=== PATIENT | female | born 1995 | race Caucasian/White ===

== ENCOUNTER 2025-08-01 09:48 | Outpatient (REF) | payer OTHER, SELFPAY ==
--- OUTSIDE RECORDS SUMMARY | 2025-08-01 09:00 | XMS_ITS | Encounter Summary ---
Author Organization [employer] Address [address] [place] [address] [address] [place] [address] Care Team Providers Care Auto Parker Name Role Phone Bren Nazario NP Primary Care Provider [phone] Reason for Referral * Consultation (Routine) - Pending Review Specialty Diagnoses / Procedures Referred By Contac t Referred To Contact Physiatry Diagnoses Chronic low back pain with left-sided sciatica, unspecified back pain laterality Bren Nazario NP [address] [place] [address] Phone: tel: fax: Referral ID Status Reason Start Date Expiration Date Visits Requested Visits Authorized [id number] Pending Review Specialty Services Required 5 08/01/2026 1 1 * Consultation (Routine) - Pending Review Specialty Diagnoses / Procedures Referred By Contac t Referred To Contact Physical Therapy Diagnoses Chronic low back pain with left-sided sciatica, unspecified back pain laterality Bren Nazario NP [address] [place] [address] Phone: tel: fax: Referral ID Status Reason Start Date Expiration Date Visits Requested Visits Authorized [id number] Pending Review Specialty Services Required 08/01/2026 1 1 Reason for Visit * Reason Comments New pt Encounter Details Date Type Department Care Team (Late st Contact Info) Description 08/01/2025 9:00 AM EST Office Visit [facility] [address] [place] [address] Bren Nazario, YEE [address] [place] [address] Chronic low back pain with left-sided sciatica, unspecified back pain laterality (Primary Dx); Healthcare maintenance; Seborrheic dermatitis Social History Tobacco Use Types Packs/Day Years Used Date Smoking Tobacco: Never Assessed Depression Answer Date Recorded Patient Health Questionnaire-9 Score 1 08/01/2025 Patient Health Questionnaire-9 Score 1 08/01/2025 Last PHQ-9: Questionnaire Data Not on file 1 10/01/2024 Housing Stability Answer Date Recorded What is your housing situation today? I have lizandro granados 07/25/[address] you li ve. Do you have problems with any of the following? None of the above 07/25/2025 Food Insecurity Answer Date Recorded Within the past 12 months, y ou worried that your food would run out before you got money to buy more: Sometimes True 2024 Within the past 12 months,th e food you bought just didn't last and you didn't have enough money to get more: Sometimes True 08/01/2025 Transportation Answer Date Recorded In the past 12 months, has l ack of transportation kept you from medical appts, meetings, work or from getting things needed for daily living? No 07/25/2025 Utilities Answer Date Recorded In the past 12 months, has t he electric, gas, oil or water company threatened to shut off services in your home? No 07/25/2025 Depression Answer Date Recorded Patient Health Questionnaire-2 Score 0 08/01/2025 Internet Access Answer Date Recorded Internet Access Q1 Yes 07/25/2025 Internet Access Q2 Not on file 07/25/2025 Comments Unknown Sex and Gender Information Value Date Recorded Sex Assigned at Female 07/25/2025 3:52 PM EST Legal Sex Female 1:54 PM EDT Gender Identity Female 07/25/2025 11:17 AM EST Sexual Orientation Straight 07/25/2025 3: 52 PM EST documented as of this encounter Last Filed Vital Signs Vital Sign Reading Time Taken Comments Blood Pressure 128/78 08/01/2025 9:06 AM EST Pulse 76 08/01/2025 9:06 AM EST Temperature 36.6 C (97.8 F) 08/01/2025 9:06 AM EST Respiratory Rate 17 08/01/2025 9:06 AM EST Oxygen Saturation - - Inhaled Oxygen Concentration - - Weight 75.8 kg (167 lb 3.2 oz) 08/01/2025 9:06 A M EST Height 159 cm (5' 2.6 ) 08/01/2025 9:06 AM EST Body Mass Index 30 08/01/2025 9:06 AM EST documented in this encounter Functional Status * Over the past 2 weeks, how often have you been bothered by any of the following problems? Question Answer Date of Assessment Author Patient Health Questionnaire-2 Score 0 07/14 9:59 AM EST Sera Stanley MA * Little interest or pleasure in doing things Answer Date of Assessment Author Not at all 08/01/2025 9:59 AM EST Sera Stanley MA * Feeling down, depressed, or hopeless Answer Date of Assessment Author Not at all 08/01/2025 9:59 AM EST Sera Stanley MA * Trouble falling or staying asleep, or sleeping too much Answer Date of Assessment Author Not at all 08/01/2025 9:59 AM EST Sera Stanley MA * Feeling tired or having little energy Answer Date of Assessment Author Several days 08/01/2025 9:59 AM EST Sera Stanley MA * Poor appetite or overeating Answer Date of Assessment Author Not at all 08/01/2025 9:59 AM EST Sera Stanley MA * Feeling bad about yourself - or that you are a failure or have let yourself or your family down Answer Date of Assessment Author Not at all 08/01/2025 9:59 AM EST Sera Stanley MA * Trouble concentrating on things, such as reading the newspaper or watching television Answer Date of Assessment Author Not at all 08/01/2025 9:59 AM EST Sera Stanley MA * Moving or speaking so slowly that other people could have noticed? Or the opposite - being so fidgety or restless that you have been moving around a lot more than usual. Answer Date of Assessment Author Not at all 08/01/2025 9:59 AM Sera Ash MA * Thoughts that you would be better off or hurting yourself in some way Answer Date of Assessment Author Not at all 08/01/2025 9:59 AM Sera Ash MA * Patient Health Questionnaire-9 Score Answer Date of Assessment Author 1 08/01/2025 9:59 AM Sera Ash MA * Over the last 2 weeks, how often have you been bothered by any of the following problems? Question Answer Date of Assessment Author Feeling nervous, anxious, or on edge 0 08/01/2025 10:00 AM Sera Ash MA Not being able to stop or co ntrol worrying 1 08/01/2025 10:00 AM Sera Ash MA Worrying too much about diff erent things 1 08/01/2025 10:00 AM Sera Ash MA Trouble relaxing 0 08/01/2025 10:00 AM Sera Ash MA Being so restless that it is hard to sit still 0 08/01/2025 10:00 AM Sera Ash MA Becoming easily annoyed or irritable 0 08/01/2025 10:00 AM Sera Ash MA Feeling afraid as if somethi ng awful might happen 0 08/01/2025 10:00 AM Sera Ash MA KYLER-7 Total Score 2 08/01/2025 10:00 AM Sera Ash MA * How difficult have these problems made it for you to do your work, take care of things at home, or get along with other people? Answer Date of Assessment Author Not difficult at all 08/01/2025 9:59 AM Sera Brower [place] documented as of this encounter Miscellaneous Notes * Assessment & Plan Note - Bren Nazario NP - 08/01/2025 9:00 AM ESTAssociated Problem(s): Chronic low back pain with left-sided sciatica Orders: Referral to Physical Therapy; Future Referral to Physiatry; Future * Assessment & Plan Note - Bren Nazario NP - 08/01/2025 9:00 AM ESTAssociated Problem(s): Healthcare maintenance Orders: HIV-1/2 Antigen and Antibodies, Fourth Generation, with Reflexes; Future Hepatitis C Antibody with Reflex to HCV, RNA, Quantitative, Real-Time PCR; Future RPR (Monitor) with Reflex to Titer; Future Lipid Panel, Standard; Future Comprehensive Metabolic Panel; Future Hemoglobin A1c; Future * Assessment & Plan Note - Bren Nazario NP - 08/01/2025 9:00 AM ESTAssociated Problem(s): Seborrheic dermatitis documented in this encounter Plan of Treatment Upcoming Encounters Date Type Department Care Team (Late st Contact Info) Description 10/30/2025 11:00 AM EST Procedure Visit [facility] [address] [place] [address] Bren Nazario NP [address] [place] [address] Scheduled Orders Name Type Priority Associated Diagnoses Orde r Schedule HIV-1/2 Antigen and Antibodies, Fourth Generation, with Reflexes Lab Routine Healthcare maintenance Expected: 08/01/2025 (Approximate), Expires: 08/01/2026 Hepatitis C Antibody with Reflex to HCV, RNA, Quantitative, Real-Time PCR Lab Routine Healthcare maintenance Expected: 08/01/2025, Expires: 08/01/2026 RPR (Monitor) with Reflex to Titer Lab Routine Healthcare maintenance Expected: 08/01/2025, Expires: 08/01/2026 Scheduled Referrals Name Type Priority Associated Diagnoses Orde r Schedule Referral to Physical Therapy Outpatient Referral Routine Chronic low back pain with left-sided sciatica, unspecified back pain laterality Expected: 08/01/2025 (Approximate), Expires: 08/01/2026 Referral to Physiatry Outpatient Referral Routine Chronic low back pain with left-sided sciatica, unspecified back pain laterality Expected: 08/01/2025 (Approximate), Expires: 08/01/2026 documented as of this encounter Procedures Procedure Name Priority Date/Time Associated Diagnosis Comments HEMOGLOBIN A1C Routine 08/01/2025 9:55 AM EST Healthcare maintenance LIPID PANEL, STANDARD Routine 08/01/2025 9:55 AM EST Healthcare maintenance COMPREHENSIVE METABOLIC PANEL Routine 08/01/2025 9:55 AM EST Healthcare maintenance documented in this encounter Results * Hemoglobin A1c (08/01/2025 9:55 AM EST) Hemoglobin A1c 5.0 <6.0 % [facility] Comment:Hemoglobin A1C Refer ence Range Adults: 4.8 - 6.0 % Non diabetic: < 6.0 % Goal: < 7.0 %Additional Action Suggested: > 8.0 %Note: Hemoglobin A1c results are invalid for patients with abnormal amounts of HbF. Blood transfusions may impact the HbA1c concentration in the patient sample. Estimated Average Glucose 97 mg/dL [facility] Comment:eAG = Estimated ave rage glucose which is %A1C expressed asaverage glucose, using the formula of the [id number] Glucose study (ADAG), Diabetes Care, Vol.31,#8,Apr. 2007 Blood Venous blood specimen / Unknown 08/01/2025 9:55 AM EST 08/01/2025 11:08 AM EST us Bren Nazario NP LAB BLOOD ORDERABLES Final Resul t [facility] [address] [place] [address] [phone] * Comprehensive Metabolic Panel (08/01/2025 9:55 AM EST) Sodium 141 135 - 145 mmol/L [facility] Potassium 3.7 3.3 - 5.1 mmol/L [facility] Chloride 108 96 - 108 mmol/L [facility] Carbon Dioxide 25 22 - 29 mmol/L [facility] Anion Gap 12 12 - 20 [facility] Urea Nitrogen (BUN) 13 9 - 16 mg/dL [facility] Creatinine, Serum 0.67 0.5 - 1.4 mg/dL [facility] Estimated Glomerular Filt Rate >60 [facility] Comment:Chronic Kidney Disea se: Estimated GFR < 60 mL/min/[id number] Kidney Disease: Estimated GFR < 15 mL/min/1.73m2 Glucose 96 60 - 115 mg/dL [facility] Calcium 9.2 8.4 - 10.2 mg/dL [facility] Bilirubin, Total 0.5 0.0 - 1.0 mg/dL [facility] Aspartate Amino Transferase 27 5 - 31 U/L [facility] Alanine Aminotransferase 23 0 - 31 U/L [facility] Total Protein 7.4 6.5 - 8.0 g/dL [facility] Albumin Level 4.5 3.5 - 5.0 g/dL [facility] Alkaline Phosphatase 67 39 - 117 U/L [facility] Blood Venous blood specimen / Unknown 08/01/2025 9:55 AM EST 08/01/2025 11:09 AM EST us Bren Nazario DEEP TISSUE MASSAGE THERAPIST LAB BLOOD ORDERABLES Final Resul t [facility] [address] [place], [place] [phone] * Lipid Panel, Standard (08/01/2025 9:55 AM EST) Triglycerides 40 <150 mg/dL [facility] Comment:Desirable Triglyceri de: less than 150 mg/dLBorderline High Triglyceride 150-199 mg/dLHigh Triglyceride: 200-499 mg/dLVery High Triglyceride: greater than or equal to 5OO mg/dL Cholesterol 144 <200 mg/dL [facility] Comment:Desirable Cholestero l: less than 200 mg/dLBorderline High Cholesterol: 200-239 mg/dLHigh Cholesterol: greater than 239 mg/dL LDL Cholesterol Calculated 77 <100 mg/dL [facility] Comment:Desirable LDL: less than 100 mg/dLNear Optimal/Above Optimal LDL: 110- 129 mg/dLBorderline High LDL: 130-159 mg/dLHigh LDL: 160-189 mg/dLVery High LDL: greater than or equal to 190 mg/dL HDL Cholesterol 59 >40 mg/dL [facility] Comment:Desirable HDL: great er than 40 mg/dL Note: This HDL assay may give artificially low results in patients with liver disease. Blood Venous blood specimen / Unknown 08/01/2025 9:55 AM EST 08/01/2025 11:09 AM EST Bren Nazario NP LAB BLOOD ORDERABLES Final Resul t [facility] [address] [place] [address] [phone] documented in this encounter Visit Diagnoses Diagnosis Chronic low back pain with left-sided sciatica, unspecified back pain laterality- Primary Healthcare maintenance Seborrheic dermatitis Unspecified seborrheic dermatitis documented in this encounter Additional Health Concerns Assessment Noted Time PHQ-9 Depression Total Score: 1 08/01/20 9:59 AM EST documented as of this encounter Care Teams Auto Parker Relationship Specialty Start Date End Date Bren Nazario NP [address] [place] [id number] PCP - General Family Medicine 08/01/25 documented as of this encounter
[2025-08-01 12:18] LABS: Alanine Aminotransferase 23 U/L (0-31); Albumin Level 4.5 g/dL (3.5-5.0); Alkaline Phosphatase 67 U/L (39-117); Anion Gap 12 (12-20); Aspartate Amino Transferase 27 U/L (5-31); Blood Urea Nitrogen 13 mg/dL (9-16); Calcium 9.2 mg/dL (8.4-10.2); Carbon Dioxide 25 mmol/L (22-29); Chloride 108 mmol/L (96-108); Cholesterol 144 mg/dL (<200); Estimated Glomerular Filt Rate > 60; HDL Cholesterol 59 mg/dL (>40); Potassium 3.7 mmol/L (3.3-5.1); Sodium 141 mmol/L (135-145); Total Protein 7.4 g/dL (6.5-8.0); Triglycerides 40 mg/dL (<150)
--- OUTSIDE RECORDS SUMMARY | 2025-08-01 18:17 | XMS_ITS | Clinical Summary ---
Author Organization [address] [place] [address] Address [address] [place] [address] Phone Care Team Providers Care Pet Sitting Name Role Phone Denita Hooper MD Primary Care Provider [phone] Allergies No known active allergies Medications cyclobenzaprine (FLEXERIL) 10 mg tablet Take 1 tablet (10 mg total) by mouth 2 (two) times a day if needed for muscle spasms for up to 10 days. 20 tablet 06/06/2025 Active Encounters Date Type Department Care Team Description 06/06/2025 8:54 AM EDT - 06/06/2025 9:54 AM EDT Emergency [facility] Emergency [address] [place] [address] Lumbar strain, initial encounter (Primary Dx) Discharge Disposition: Home or Self Care from Last 3 Months Social History Tobacco Use Types Packs/Day Years Used Date Smoking Tobacco: Never Assessed Comments Unknown Sex and Gender Information Value Date Recorded Sex Assigned at Not on file Legal Sex Female 4:32 AM EST Gender Identity Not on file Sexual Orientation Not on file Obstetrics History Last Filed Vital Signs Vital Sign Reading Time Taken Comments Blood Pressure 115/69 06/06/2025 8:44 AM EDT Pulse 65 06/06/2025 8:44 AM EDT Temperature 36.9 C (98.4 F) 06/06/2025 8:44 AM EDT Respiratory Rate 18 06/06/2025 8:44 AM EDT Oxygen Saturation 100% 06/06/2025 8:44 AM EDT Inhaled Oxygen Concentration - - Weight 72.6 kg (160 lb) 06/06/2025 8:44 AM EDT Height 157.5 cm (5' 2 ) 06/06/2025 8:44 AM EDT Body Mass Index 29.26 06/06/2025 8:44 AM EDT Plan of Treatment Health Maintenance Due Date Last Done Comments Cervical Cancer Screening: Pap Smear 2018 Depression Screening 09/13/2024 COVID-19 Vaccine ( season) 2025 07/23/2021, 10/26/2020, 10/05/2020 Influenza Vaccine (#1) 2025 8, 05/28/2017, 05/26/2016, Additional history exists HIV Screening 06/06/2025 Hepatitis C Screening 06/06/2025 Social Influencers of Health Screening 06/06/2025 DTaP,Tdap,and Td Vaccines (8 - Td or Tdap) 03/19/2031 03/19/2021, 11/07/2009, 11/28/2001, Additional history exists RSV Immunization Adult Patients (1 - 1-dose 75+ series) 2072 Hepatitis B Vaccines Completed 06/28/1998, 1997, 1997 HIB Vaccines Completed 12/31/1998, 06/13, 03/13/1998, Additional history exists IPV Vaccines Completed 12/08/2002, 12/13, 10/14/1998, Additional history exists MMR Vaccines Completed 12/08/2002, 11/28/2001 Varicella Vaccines Completed 11/07/2009, 10/14/1998 HPV Vaccines Completed 09/12/2012, 04/13, 02/15/2012 Meningococcal ACWY Vaccine Completed 03/27/2014, Hepatitis A Vaccines Aged Out No long er eligible based on patient's age to complete this topic Meningococcal B Vaccine Aged Out No l onger eligible based on patient's age to complete this topic Pneumococcal Vaccine: Pediatrics (0 to 5 Years) and At-Risk Patients (6 to 49 Years) Aged Out No longer eligible based on patient's age to complete this topic RSV Immunization Patients Under 20 months Aged Out No longer eligible based on patient's age to complete this topic Insurance MEDICAID - [place] Care Teams Pet Sitting Relationship Specialty Start Date End Date Denita Hooper MD [address], [place] PCP - General Internal Medicine 12/25/24
--- OUTSIDE RECORDS SUMMARY | 2025-08-01 18:17 | XMS_ITS | Encounter Summary ---
Author Organization [employer] Address [address] [place] [address] Care Team Providers Care Textile Technical Officer Name Role Phone Bren Nazario NP Primary Care Provider [phone] Encounter Details Date Type Department Care Team (Latest Contact Info) Description 08/01/2025 Travel Social History Tobacco Use Types Packs/Day Years [...] PM EST documented as of this encounter Functional Status * Over the past 2 weeks, how often have you been bothered by any of the following problems? Question Answer Date of Assessment Author Patient Health Questionnaire-2 Score 0 07/14 9:59 AM EST Sera Stanley MA * Little interest or pleasure in doing things Answer Date of Assessment Author Not at all 08/01/2025 9:59 AM Sera Ash MA * Feeling down, depressed, or hopeless Answer Date of Assessment Author Not at all 08/01/2025 9:59 AM Sera Ash [place] * Trouble falling or staying asleep, or sleeping too much Answer Date of Assessment Author Not at all 08/01/2025 9:59 AM Sera Ash MA * Feeling tired or having little energy Answer Date of Assessment Author Several days 08/01/2025 9:59 AM Sera Ash MA * Poor appetite or overeating Answer Date of Assessment Author Not at all 08/01/2025 9:59 AM Sera Ash MA * Feeling bad about yourself - or that you are a failure or have let yourself or your family down Answer Date of Assessment Author Not at all 08/01/2025 9:59 AM Sera Ash MA * Trouble concentrating on things, such as reading the newspaper or watching television Answer Date of Assessment Author Not at all 08/01/2025 9:59 AM Sera Ash MA * Moving or speaking so slowly [...] Brower MA documented as of this encounter Plan of Treatment Upcoming Encounters Date Type Department Care Team (Late st Contact Info) Description 10/30/2025 11:00 AM EST Procedure Visit [facility] [address] [place] [address] Bren Nazario NP [address] [place] [address] documented as of this encounter Visit Diagnoses Not on filedocumented in this encounter Additional Health Concerns Assessment Noted Time PHQ-9 Depression Total Score: 1 08/01/20 9:59 AM EST documented as of this encounter Care Teams Textile Technical Officer Relationship Specialty Start Date End Date Bren Nazario NP [address] [place] [id number] PCP - General Family Medicine 08/01/25 documented as of this encounter
--- OUTSIDE RECORDS SUMMARY | 2025-08-01 18:18 | XMS_ITS | Clinical Summary ---
Author Organization [employer] Address [address] [facility] [address] [place] [address] Care Team Providers Care Impact Retail Service Merchandiser Name Role Phone Bren Nazario NP Primary Care Provider [phone] Allergies No known active allergies Medications cyclobenzaprine (Flexeril) 5 MG tablet Take 1 tablet (5 mg) by mouth if needed in the morning, at noon, and at bedtime for muscle spasms for up to 10 days. 30 tablet 5 08/11/20 25 Active ketoconazole (NIZOral) 2 % shampoo Apply topically 2 (two) times a week for 28 days. 280 mL 1 5 08/30/20 25 Active Active Problems Problem Noted Date Diagnosed Date Chronic low back pain with left-sided sciatica 1 10/01/2024 Assessment & Plan (08/01/2025 2:41 PM EST): Orders: Referral to Physical Therapy; Future Referral to Physiatry; Future Healthcare maintenance 08/01/2025 Assessment & Plan (08/01/2025 2:41 PM EST): Orders: HIV-1/2 Antigen and Antibodies, Fourth Generation, with Reflexes; Future Hepatitis C Antibody with Reflex to HCV, RNA, Quantitative, Real-Time PCR; Future RPR (Monitor) with Reflex to Titer; Future Lipid Panel, Standard; Future Comprehensive Metabolic Panel; Future Hemoglobin A1c; Future Seborrheic dermatitis 08/01/2025 Assessment & Plan (08/01/2025 2:41 PM EST): Encounters Date Type Department Care Team Description 08/01/2025 9:00 AM EST Office Visit [facility] [address] [place] [address] Bren Nazario NP Chronic low back pain with left-sided sciatica, unspecified back pain laterality (Primary Dx); Healthcare maintenance; Seborrheic dermatitis 08/01/2025 Results Follow-Up [facility] [address] [place] [address] Bren Nazario NP Lipid Panel, Standard, Comprehensive Metabolic Panel, Hemoglobin A1c 08/01/2025 Travel 07/31/2025 Telephone [facility] [address] [place], [place] [phone] Lupe Harden MA CHARTPREP 07/25/2025 Patient Outreach [facility] [address] [place], [place] [phone] Bren Nazario NP Pre-visit Planning (SDOH negative, Tobacco screening negative. ) 07/25/2025 Travel from Last 3 Months Social History Tobacco Use Types Packs/Day Years Used Date Smoking Tobacco: Never Assessed Depression Answer Date Recorded Patient Health Questionnaire-9 Score 1 08/01/2025 Patient Health Questionnaire-9 Score 1 08/01/2025 Last PHQ-9: Questionnaire Data Not on file 1 10/01/2024 Housing Stability Answer Date Recorded What is your housing situation today? I have lizandrorukhsana granados 07/25/[address] you [...] t he electric, gas, oil or water [employer] threatened to shut off services in your [...] Orientation Straight 07/25/2025 3: 52 PM EST Last Filed Vital Signs Vital Sign Reading [...] Mass Index 30 08/01/2025 9:06 AM EST Plan of Treatment Upcoming Encounters Date Type Department Care Team (Late st Contact Info) Description 10/30/2025 11:00 AM EST Procedure Visit [facility] [address] [place] [address] Bren Nazario NP [address] [place] [address] Health Maintenance Due Date Last Done Comments HIV Screening 1997 Tobacco Screening 2009 Family Planning (PISQ) 2012 Hepatitis C Screening 2015 Pap Smear 2018 DTaP/Tdap/Td Vaccines (7 - Td or Tdap) 11/07/2019 11/07/2009, 11/28/2001, 12/31/1998, Additional history exists COVID-19 Vaccine ( season) 2025 Influenza Vaccine (#1) 2025 8, 05/28/2017, 05/26/2016, Additional history exists Alcohol/Substance Use Screening 08/01/2026 08/01/2025 Depression Screening 08/01/2026 08/01/2025, 08/01/20 Disability Screening 08/01/2026 08/01/2025 SDOH Screening 08/01/2026 08/01/2025 Zoster Vaccines (1 of 2) 2047 RSV Patients and Patients Aged 60 years or older (1 - 1-dose 75+ series) 2072 Hepatitis B Vaccines Completed 06/28/1998, 1997, 1997 HIB Vaccines Completed 12/31/1998, 06/13, 03/13/1998, Additional history exists IPV Vaccines Completed 12/08/2002, 12/13, 06/28/1998, Additional history exists HPV Vaccines Completed 09/12/2012, 04/13, 02/15/2012 Meningococcal Vaccine Completed 03/27/2014, 010 Hepatitis A Vaccines Aged Out No long er eligible based on patient's age to complete this topic Meningococcal B Vaccine Aged Out No l onger eligible based on patient's age to complete this topic Pneumococcal Vaccine: Pediatrics (0 to 5 Years) and At-Risk Patients (6 to 49) Years Aged Out No longer eligible based on patient's age to complete this topic RSV under 20 months Aged Out No longe r eligible based on patient's age to complete this topic Rotavirus Vaccines Aged Out No longer eligible based on patient's age to complete this topic Procedures Procedure Name Priority Date/Time Associated Diagnosis Comments HEMOGLOBIN A1C Routine 08/01/2025 9:55 AM EST Healthcare maintenance COMPREHENSIVE METABOLIC PANEL Routine 08/01/2025 9:55 AM EST Healthcare maintenance LIPID PANEL, STANDARD Routine 08/01/2025 9:55 AM EST Healthcare maintenance from Last 3 Months Results * Hemoglobin A1c (08/01/2025 9:55 AM EST) Hemoglobin A1c 5.0 <6.0 % [facility] Comment:Hemoglobin A1C Refer ence Range Adults: 4.8 - 6.0 % Non diabetic: < 6.0 % Goal: < 7.0 %Additional Action Suggested: > 8.0 %Note: Hemoglobin A1c results are invalid for patients with abnormal amounts of HbF. Blood transfusions may impact the HbA1c concentration in the patient sample. Estimated Average Glucose 97 mg/dL [facility] Comment:eAG = Estimated ave rage glucose which is %A1C expressed asaverage glucose, using the formula of the [id number] Glucose study (ADAG), Diabetes Care, Vol.31,#8,Apr. 2007 Blood Venous blood specimen / Unknown 08/01/2025 9:55 AM EST 08/01/2025 11:08 AM EST us Bren Nazario NP LAB BLOOD ORDERABLES Final Resul t [facility] [address] [place] [address] [phone] * Lipid Panel, Standard (08/01/2025 9:55 AM EST) Triglycerides 40 <150 mg/dL [facility] Comment:Desirable Triglyceri de: less than 150 mg/dLBorderline High Triglyceride 150-199 mg/dLHigh Triglyceride: 200-499 mg/dLVery High Triglyceride: greater than or equal to 5OO mg/dL Cholesterol 144 <200 mg/dL [facility] Comment:Desirable Cholestero l: less than 200 mg/dLBorderline High Cholesterol: 200-239 mg/dLHigh Cholesterol: greater than 239 mg/dL LDL Cholesterol Calculated 77 <100 mg/dL [facility] Comment:Desirable LDL: less than 100 mg/dLNear Optimal/Above Optimal LDL: 110- 129 mg/dLBorderline High LDL: 130-159 mg/dLHigh LDL: 160-189 mg/dLVery High LDL: greater than or equal to 190 mg/dL HDL Cholesterol 59 >40 mg/dL [facility] Comment:Desirable HDL: great er than 40 mg/dL Note: This HDL assay may give artificially low results in patients with liver disease. Blood Venous blood specimen / Unknown 08/01/2025 9:55 AM EST 08/01/2025 11:09 AM EST us Bren Nazario LABEL MACHINE OPERATOR LAB BLOOD ORDERABLES Final Resul t Performing Organization Address City/[facility]/ZIP Co de Phone Number [facility] [address] [place] [address] [phone] * Comprehensive Metabolic Panel (08/01/2025 9:55 AM EST) Sodium 141 135 - 145 mmol/L [facility] Potassium 3.7 3.3 - 5.1 mmol/L [facility] Chloride 108 96 - 108 mmol/L [facility] Carbon Dioxide 25 22 - 29 mmol/L [facility] Anion Gap 12 12 - 20 [facility] Urea Nitrogen (BUN) 13 9 - 16 mg/dL [facility] Creatinine, Serum 0.67 0.5 - 1.4 mg/dL [facility] Estimated Glomerular Filt Rate >60 [facility] Comment:Chronic Kidney Disea se: Estimated GFR < 60 mL/min/[id number] Kidney Disease: Estimated GFR < 15 mL/min/1.73m2 Glucose 96 60 - 115 mg/dL [facility] Calcium 9.2 8.4 - 10.2 mg/dL [facility] Bilirubin, Total 0.5 0.0 - 1.0 mg/dL [facility] Aspartate Amino Transferase 27 5 - 31 U/L [facility] Alanine Aminotransferase 23 0 - 31 U/L [facility] Total Protein 7.4 6.5 - 8.0 g/dL [facility] Albumin Level 4.5 3.5 - 5.0 g/dL [facility] Alkaline Phosphatase 67 39 - 117 U/L [facility] Blood Venous blood specimen / Unknown 08/01/2025 9:55 AM EST 08/01/2025 11:09 AM EST us Bren Nazario LABEL MACHINE OPERATOR LAB BLOOD ORDERABLES Final Resul t Performing Organization Address City/[facility]/ZIP Co de Phone Number [facility] [address] [place] [address] [phone] from Last 3 Months Insurance [facility] 2 Care Teams Impact Retail Service Merchandiser Relationship Specialty Start Date End Date Bren Nazario NP [address] [place] [phone] PCP - General Family Medicine 08/01/25
--- OUTSIDE RECORDS SUMMARY | 2025-08-01 18:18 | XMS_ITS | Encounter Summary ---
Author Organization [employer] Address [address] [facility] [address] [place] [address] Care Team Providers Care Film Printer Name Role Phone Unavailable Primary Care Provider Unavailabl e Reason for Visit * Reason Onset Date Comments CHARTPREP 07/31/2025 Encounter Details Date Type Department Care Team ([facility] st Contact Info) Description 07/31/[address] [facility] [address] [place] [address] Lupe Harden MA CHARTPREP Social History Tobacco Use Types Packs/Day Years [...] PM EST documented as of this encounter Miscellaneous Notes * Telephone Encounter - Lupe Harden MA - 07/31/2025 12:09 PM EST Chart Prep Labs: not applicable Images: not applicable Referrals: not applicable Vaccines due: Covid, Flu, and Tdap Screenings: pap smear,Hep C screening,family planning,alcohol/substance use screening,HIV screening, Overdue care gaps: SBIRT, PHQ-9, KYLER-7, and Tobacco documented in this encounter Plan of Treatment Upcoming Encounters Date Type Department Care Team (Late st Contact Info) Description 10/30/2025 11:00 AM EST Procedure Visit [facility] [address] [place] [address] Bren Nazario NP [address] [place] [address] documented as of this encounter Visit Diagnoses Not on filedocumented in this encounter
--- OUTSIDE RECORDS SUMMARY | 2025-08-01 18:18 | XMS_ITS | Encounter Summary ---
Author Organization [employer] Address [address] [facility] [address] [place] [address] Care Team Providers Care Segregator Name Role Phone Bren Nazario NP Primary Care Provider [phone] Encounter Details Date Type Department Care Team (Latest Contact Info) Description 08/01/2025 Results Follow-Up [facility] [address] [place], [place] [phone] Bren Nazario NP [address] [place] [address] Lipid Panel, Standard, Comprehensive Metabolic Panel, Hemoglobin A1c Social History Tobacco Use Types Packs/Day Years [...] Health Questionnaire-2 Score 0 07/14 9:59 AM Sera Ash [place] * Little interest or pleasure in [...] of Assessment Author 1 08/01/2025 9:59 AM eSra Ash [place] * Over the last 2 [...] Description 10/30/2025 11:00 AM EST Procedure Visit [facility] [address] [place] [address] Bren Nazario NP [address] [place] [address] documented as of this encounter Visit Diagnoses Not on filedocumented in this encounter Additional Health Concerns Assessment Noted Time PHQ-9 Depression Total Score: 1 08/01/20 9:59 AM EST documented as of this encounter Care Teams Segregator Relationship Specialty Start Date End Date Bren Nazario NP [address] [place] [address] PCP - General Family Medicine 08/01/25 documented as of this encounter
[2025-08-02 09:19] LABS: HIV Num 1 0.06 S/CO (0.00-0.99); ~HepC Num1 0.10 S/CO (0.00-0.79); ~Hepatitis C Antibody Nonreactive (Nonreactive)
== END 2025-08-01 09:49 | disposition home or self-care (01) ==
LOC: HO.HHCL 09:48
PROVIDERS: PCP Nurse Practitioner Family; Visit Provider Nurse Practitioner Family
DX: Z00.00 Encounter for general adult medical examination without abnormal findings (principal); Z11.4 Encounter for screening for human immunodeficiency virus [HIV]; Z11.59 Encounter for screening for other viral diseases
CPT/HCPCS: 36415; 80053; 80061; 83036; 86592; 86803; 87389